=== PATIENT | male | born 1990 | race Caucasian/White ===

== ENCOUNTER 2021-02-26 19:44 | Emergency (ER) | payer MEDICAID ==
[~2021-02-26] VITALS: Ht 167.6 cm; Wt 74.8 kg
[2021-02-26] MEDS ORDERED: HYDROmorphone/PF 0.2 MG/ML SYRINGE IV ONE (20:00)
[2021-02-26] MEDS ORDERED: HYDROmorphone 1 mg/ml syringe IV ONE ×2 (20:05→20:25)
[2021-02-26 20:19] LABS: BASOPHILS # (AUTO) 0.1 X10'3 (0-0.2); EOSINOPHILS # (AUTO) 0.4 X10'3 (0-0.9); EOSINOPHILS % (AUTO) 3.2 % (0-6); HEMATOCRIT 42.4 % (42.0-52.0); HEMOGLOBIN 14.4 g/dl (14.0-17.9); LYMPHOCYTES # (AUTO) 6.2 X10'3 (1.1-4.8); MEAN CORPUSCULAR HEMOGLOBIN 31.3 PG (27.0-31.0); MEAN CORPUSCULAR HGB CONC 34.1 g/dL (33.0-36.5); MEAN CORPUSCULAR VOLUME 92.1 FL (78-98); MEAN PLATELET VOLUME 8.1 FL (7.4-10.4); MONOCYTES % (AUTO) 7.5 % (2-12); NEUTROPHILS # (AUTO) 5.7 X10'3 (1.8-7.7); NEUTROPHILS % (AUTO) 42.3 % (42-75); PLATELET COUNT 441 X10'3 (140-440); RED BLOOD COUNT 4.61 X10'6 (4.70-6.10); WHITE BLOOD COUNT 13.5 X10'3 (4.5-11.0)
[2021-02-26] MEDS ORDERED: TETanus/Pertussis (Acell)/Diphther VAC/PF (Tdap-Adult) 0.5ml syringe IMVAC ONE (20:20)
[2021-02-26 20:25] LABS: PARTIAL THROMBOPLASTIN TIME 25 SECONDS (22-32)
[2021-02-26 20:26] LABS: ALANINE AMINOTRANSFERASE 35 U/L (12-78); ALBUMIN 3.1 G/DL (3.4-5.0); ALBUMIN/GLOBULIN RATIO 0.8 (1.1-1.5); ALKALINE PHOSPHATASE 89 IU/L (46-116); ANION GAP 14 (8-16); ASPARTATE AMINO TRANSFERASE 28 U/L (10-37); BILIRUBIN,TOTAL 0.3 MG/DL (0.1-1.0); BLOOD UREA NITROGEN 24 MG/DL (7-18); CALCIUM 8.1 MG/DL (8.5-10.1); CHLORIDE 102 MMOL/L (99-107); CREATININE 1.71 MG/DL (0.60-1.10); GLUCOSE 262 MG/DL (70-104); POTASSIUM 3.8 MMOL/L (3.5-5.1); SODIUM 137 MMOL/L (135-145); TOTAL CARBON DIOXIDE 21.1 MMOL/L (24-32); TOTAL PROTEIN 7.1 G/DL (6.4-8.2); eGFR 47 ML/MIN
[2021-02-26] MEDS ORDERED: ringers solution, lactated 1000ml IV soln IV ONE ×2 (20:30→22:35)
[2021-02-26 20:39] LABS: CKMB RELATIVE INDEX 0.7 RATIO (0-2.5); CREATINE KINASE 250 U/L (39-308)
[2021-02-26 20:44] LABS: ETHANOL < 0.010 GM/DL (0.0-0.010)
--- NOTE | 2021-02-26 20:46 | NUR ---
[facility] IN [facility] [phone]
[2021-02-26] MEDS ORDERED: LIDOcaine 2% 10ml TOPICAL JELLY (Urojet) MM ONE (21:00)
[2021-02-26 21:13] LABS: PLATELET ESTIMATE NORMAL; TOTAL CELLS COUNTED 100
[2021-02-26 21:34] LABS: CLARITY,URINE SLIGHTLY CLOUDY (Clear); COLOR,URINE YELLOW (Yellow); GLUCOSE, URINE 100 mg/dl (Neg); KETONES,URINE 15 mg/dl (Neg); LEUKOCYTE ESTERASE ,URINE NEGATIVE (Neg); NITRITES, URINE NEGATIVE (Neg); OCCULT BLOOD,URINE LARGE (Neg); PH,URINE 5.5 (4.8-8.0); PROTEIN,URINE 100 mg/dl (Neg); UROBILINOGEN,URINE 0.2 E.U/dL (0.2-1.0)
[2021-02-26 21:35] LABS: UA COLLECTION TYPE FOLEY CATH; URINE AMPHETAMINE SCREEN NEGATIVE (Neg); URINE BARBITUATE SCREEN NEGATIVE (Neg); URINE BENZODIAZEPINES SCREEN NEGATIVE (Neg); URINE CANNABINOID SCREEN POSITIVE (Neg); URINE COCAINE SCREEN NEGATIVE (Neg); URINE METHADONE SCREEN NEGATIVE (Neg); URINE OPIATE SCREEN POSITIVE (Neg); URINE PHENCYCLIDINE SCREEN NEGATIVE (Neg)
[2021-02-26 21:41] LABS: CELLULAR CAST 0-4 /LPF (NEGATIVE); HYALINE CASTS 0-3 /LPF (NEGATIVE); SQUAMOUS EPITHELIAL CELL,UR FEW /LPF (FEW)
[2021-02-26 21:42] LABS: BACTERIA,URINE 1+ /HPF (Neg)
--- NOTE | 2021-02-26 22:00 | NUR ---
PER BELL HOLGUIN, APPLY XEROFORM WITH GAUZE AND WRAP WITH KERLIX OR TAPE IN PLACE. RELAYED MESSAGE TO DR KAHN.
--- NOTE | 2021-02-26 22:03 | NUR ---
TECH IRRIGATING ZALDIVAR WITH NS AND LIGHTLY PATTING DRY. APPLYING XEROFORM TO ZALDIVAR WITH GAUZE AND TAPING IN PLACE.
[2021-02-26] MEDS ORDERED: piperacillin/tazo 4.5gm/100ml 100 ML IV STA (22:07)
[2021-02-27] MEDS ORDERED: HYDROmorphone 1 mg/ml syringe IV ONE (00:30)
--- NOTE | 2021-02-27 02:14 | NUR ---
ASKED PT IF NEEDED WOULD HE ACCEPT BEING INTUBATED., PT DECLINED. ADVISED PT OF RISK AND BENEFITS OF INTUBATION AND PT STILL DECLINED, MD ROGERS AWARE.
[2021-02-27] MEDS: HYDROmorphone 1 mg/ml syringe IV PRN ×8 (02:36→13:47)
[2021-02-27] MEDS ORDERED: pantoprazole IV 40 MG in normal saline 100ml IV soln 100 ML IV STA (03:24)
[2021-02-27] MEDS ORDERED: pantoprazole 40MG/NS 100ML BAG 100 ML IV STA (03:29)
[2021-02-27] MEDS ORDERED: ringers solution, lactated 1000ml IV soln IV ONE (04:20)
--- NOTE | 2021-02-27 06:30 | NUR ---
FIRST CONTACT WITH PT. FOUND SEMI-FOWLERS IN BED, BREATHING ON 2L NC. PAIN 01/04, REQUESTING PAIN MEDS. NO DISTRESS, COMPLETES FULL SENTENCE, EATING ICE CHIPS. AWAITING TRANSPORT TO [facility].
--- NOTE | 2021-02-27 07:15 | NUR ---
NC REMOVED, PT 99% ON RA. PT RE-MEDICATED WITH DILAUDID 1MG, REPORTS PAIN 10/10. UPDATED ON POC AND TRANSPORT PLAN.
[2021-02-27 08:20] LABS: BASOPHILS % (AUTO) 0.4 % (0-1); EOSINOPHILS # (AUTO) 0.2 X10'3 (0-0.9); EOSINOPHILS % (AUTO) 1.4 % (0-6); HEMATOCRIT 38.5 % (42.0-52.0); HEMOGLOBIN 13.4 g/dl (14.0-17.9); LYMPHOCYTES # (AUTO) 1.4 X10'3 (1.1-4.8); LYMPHOCYTES % (AUTO) 11.7 % (21-51); MEAN CORPUSCULAR HGB CONC 34.7 g/dL (33.0-36.5); MEAN CORPUSCULAR VOLUME 92.1 FL (78-98); MEAN PLATELET VOLUME 7.9 FL (7.4-10.4); MONOCYTES % (AUTO) 8.7 % (2-12); NEUTROPHILS # (AUTO) 9.2 X10'3 (1.8-7.7); NEUTROPHILS % (AUTO) 77.8 % (42-75); PLATELET COUNT 286 X10'3 (140-440); RED BLOOD COUNT 4.18 X10'6 (4.70-6.10); RED CELL DISTRIBUTION WIDTH 13.3 % (11.5-14.5); WHITE BLOOD COUNT 11.8 X10'3 (4.5-11.0)
--- NOTE | 2021-02-27 08:20 | NUR ---
PROVIDED PT CONDITION UPDATE TO PROVIDER. PT DENIES ANY DIFFICULTY SWALLOWING, DENIES SWELLING OF THE TONGUE. MD OKAYED FOR PT TO HAVE WATER. PT TOLERATED PO INTAKE OF WATER AND ICE CHIPS W/O DIFFICULTY.
[2021-02-27 08:44] LABS: ALANINE AMINOTRANSFERASE 32 U/L (12-78); ALBUMIN 2.4 G/DL (3.4-5.0); ALBUMIN/GLOBULIN RATIO 0.7 (1.1-1.5); ALKALINE PHOSPHATASE 77 IU/L (46-116); ANION GAP 7 (8-16); ASPARTATE AMINO TRANSFERASE 35 U/L (10-37); BILIRUBIN,TOTAL 0.3 MG/DL (0.1-1.0); BLOOD UREA NITROGEN 18 MG/DL (7-18); BUN/CREATININE RATIO 15.9 (5.4-32.0); CALCIUM 7.2 MG/DL (8.5-10.1); CHLORIDE 108 MMOL/L (99-107); CREATININE 1.13 MG/DL (0.60-1.10); GLUCOSE 121 MG/DL (70-104); POTASSIUM 3.6 MMOL/L (3.5-5.1); SODIUM 140 MMOL/L (135-145); TOTAL CARBON DIOXIDE 25.5 MMOL/L (24-32); TOTAL PROTEIN 5.7 G/DL (6.4-8.2); eGFR 76 ML/MIN
--- NOTE | 2021-02-27 11:18 | NUR ---
REPORT CALLED TO EZIO NORRIS AT [facility] ICU
--- NOTE | 2021-02-27 12:30 | NUR ---
FAMILY UPDATED ON FLIGHT TIME AND PT STATUS. ALL QUESTIONS ANSWERED AT THIS TIME.
[2021-02-27 13:00] VITALS: BP 161/91
--- NOTE | 2021-02-27 14:07 | NUR ---
PT STOOD AT BEDSIDE WITH STEADY GAIT. COMPLETE LINEN CHANGE PROVIDED. PT TOLERATED MOVEMENT WELL.
--- NOTE | 2021-02-27 15:04 | NUR ---
REPORTED W/ SBAR TO REACH FOR TRANSFER OF PT CARE.
== END 2021-02-27 15:30 | disposition short-term general hospital (02) ==
LOC: ER 19:44
DX: T23.202A Burn of second degree of left hand, unspecified site, initial encounter (principal); Z20.822 Contact with and (suspected) exposure to COVID-19; T23.201A Burn of second degree of right hand, unspecified site, initial encounter; T31.0 Burns involving less than 10% of body surface; M79.642 Pain in left hand; M79.641 Pain in right hand; Z72.89 Other problems related to lifestyle
CPT/HCPCS: 36415; 51702; 71045; 80053; 80305; 80320; 81001; 82550; 82553; 83605; 83874; 85007; 85025; 85610; 85730; 86885; 86900; 86901; 87088; 87635; 93005; 96361; 96365; 96366; 96375; 96376; 99291; C9113; C9803; J1170; J2543; J7120